=== PATIENT | male | born 1940 | race Two or more races ===

== ENCOUNTER 2025-01-22 20:19 | Emergency (ER) | payer MEDICARE ==
[~2025-01-22] VITALS: Ht 165.1 cm; Wt 64.4 kg
[2025-01-22 21:28] LABS: PLATELET COUNT (AUTO) 157 K/uL (150-450); RED BLOOD CELL COUNT(AUTO) 4.89 MIL/uL (4.5-6.0); RED CELL DISTRIBUTION WIDTH 13.8 % (11.5-15.0); WHITE BLOOD COUNT (AUTO) 8.3 K/uL (4.3-11.0)
[2025-01-22 21:37] LABS: CALCIUM, SERUM 8.9 mg/dL (8.5-10.1); CREATININE 1.3 mg/dL (0.6-1.3); SODIUM SERUM 142.0 mmol/L (136-145); UREA NITROGEN, BLOOD 29.0 mg/dL (7-18)
[2025-01-22 21:50] LABS: INR 1.08 (0.91-1.10)
[2025-01-22 22:00] LABS: APPEARANCE,URINE SLIGHTLY CLOUDY (CLEAR); BLOOD, URINE 3+ Ery/uL (NEGATIVE); LEUKOCYTE ESTERASE ,URINE NEGATIVE (NEGATIVE); NITRITE, URINE NEGATIVE (NEGATIVE); UGLUCOSE NEGATIVE (NEGATIVE)
[2025-01-22] MEDS ORDERED: CEPH-570 PO (22:07)
[2025-01-22 22:19] VITALS: BP 132/72; TEMP 98.4; O2SAT 97
[2025-01-22 22:33] LABS: ADD URINE CULTURE NO; SQUAMOUS EPITHELIAL CELL,UR Rare /HPF (None Seen)
== END 2025-01-22 22:19 | disposition home or self-care (01) ==
LOC: ER 20:24
DX: R31.9 Hematuria, unspecified (principal); E78.5 Hyperlipidemia, unspecified; I11.9 Hypertensive heart disease without heart failure; Z85.46 Personal history of malignant neoplasm of prostate; Z86.73 Personal history of transient ischemic attack (TIA), and cerebral infarction without residual deficits
CPT/HCPCS: 36415; 80048-TC; 81001; 85025-TC; 85730-TC